=== PATIENT | male | born 1960 | race Hispanic/Latino ===

== ENCOUNTER → 2020-04-15 | Outpatient (CLI) | payer OTHER ==
[~2020-04-15] MED LIST: DAPA10TA PO; ESCI20TA36 PO; GLYB5TAB8 PO; METF-444 PO; OLAN15TA2 PO; SIMV-43 PO
== END | disposition home or self-care (01) ==
LOC: RAH 09:15
PROVIDERS: ATTEND Physical Medicine & Rehabilitation
DX: M25.551 Pain in right hip (principal)
CPT/HCPCS: 73502

== ENCOUNTER → 2020-04-19 | Outpatient (CLI) | payer OTHER ==
[2020-04-19 10:21] LABS: THYROID STIMULATING HORMONE 0.65 uIU/mL (0.36-3.74)
== END | disposition home or self-care (01) ==
LOC: LAB 08:05
PROVIDERS: ATTEND Physical Medicine & Rehabilitation
DX: E11.9 Type 2 diabetes mellitus without complications (principal); D75.89 Other specified diseases of blood and blood-forming organs
CPT/HCPCS: 36415; 84402; 84403; 84439; 84443; 84481

== ENCOUNTER → 2020-08-29 | Outpatient (CLI) | payer OTHER ==
[~2020-08-29] MED LIST changes: -ESCI20TA36 PO; +ESCI20TA38 PO
== END | disposition home or self-care (01) ==
LOC: RAH 12:32
PROVIDERS: ATTEND Physical Medicine & Rehabilitation
DX: M77.32 Calcaneal spur, left foot (principal)
CPT/HCPCS: 73610

== ENCOUNTER → 2020-12-14 | Outpatient (CLI) | payer OTHER | END | disposition home or self-care (01) | LOC: RAH 10:44 | PROVIDERS: ATTEND Physical Medicine & Rehabilitation | DX: M51.16 Intervertebral disc disorders with radiculopathy, lumbar region (principal); M51.06 Intervertebral disc disorders with myelopathy, lumbar region; M51.27 Other intervertebral disc displacement, lumbosacral region; M48.061 Spinal stenosis, lumbar region without neurogenic claudication; M48.07 Spinal stenosis, lumbosacral region | CPT/HCPCS: 72148 ==

== ENCOUNTER 2021-08-03 06:25 | Day surgery (SDC) | payer OTHER ==
[2021-08-02 09:55] VITALS: BP 115/69
[2021-08-02 10:28] LABS: APPEARANCE,URINE CLEAR (CLEAR); BILIRUBIN,URINE NEGATIVE (NEGATIVE); COLOR,URINE YELLOW (YELLOW); GLUCOSE, URINE (UA) >=1000 mg/dL (NEGATIVE); KETONES,URINE NEGATIVE (NEGATIVE); LEUKOCYTE ESTERASE ,URINE NEGATIVE (NEGATIVE); NITRATE,URINE NEGATIVE (NEGATIVE); OCCULT BLOOD,URINE NEGATIVE (NEGATIVE); PH,URINE 6.5 (5.0-8.0); PROTEIN,URINE NEGATIVE (NEGATIVE); UROBILINOGEN,URINE 0.2 mg/dL (0.2-1.0)
[2021-08-02 10:50] LABS: BACTERIA,URINE Rare /HPF (None Seen); RBC,URINE None Seen /HPF (0-1); WBC,URINE None Seen /HPF (0-1)
[2021-08-02 10:51] LABS: SQUAMOUS EPITHELIAL CELL,UR None Seen /HPF (0-2)
[~2021-08-03] VITALS: Ht 157.5 cm; Wt 83.6 kg
[2021-08-03] VITALS (15 sets, daily range): BP systolic 106–127; BP diastolic 61–70
[~2021-08-03 06:25] MED LIST changes: +CLON1TAB12 PO; -ESCI20TA38 PO; +GABA-529 PO; +GLIP5TAB11 PO; -GLYB5TAB8 PO; +ICOS1CAP PO; +INSU100V12 SQ; +LISI2.5T13 PO; -OLAN15TA2 PO; +SERT-440 PO; +SIMV-46 PO; +SITA100T12 PO
[2021-08-03] MEDS ORDERED: 0.9%NACL 1000ML 1,000 ML IV ONE (07:03)
[2021-08-03] MEDS ORDERED: CEFAZOLIN SODIUM 1 GM VIAL ONE ×2 (07:41→08:14)
[2021-08-03] MEDS ORDERED: NEOSTIGMINE 5MG/5ML SYR IV ONE (09:10)
[2021-08-03] MEDS ORDERED: ONDANSETRON 4MG INJ ONE (09:10)
[2021-08-03] MEDS ORDERED: SUCCINYLCHOLINE 200MG/10ML SYR ONE (09:10)
[2021-08-03] MEDS ORDERED: GLYCOPYRROLATE 1 MG/5 ML SYRINGE ONE (09:10)
[2021-08-03] MEDS ORDERED: SUCCINYLCHOLINE CHLORIDE 20 MG/ML 10 ML VIAL ONE ×2 (09:10→09:14)
[2021-08-03] MEDS ORDERED: LIDOCAINE PF 100MG/5ML (2%) SYRINGE 5ML ONE ×2 (09:10→09:14)
[2021-08-03] MEDS ORDERED: PROPOFOL 10 MG/ML 20ML VIAL IV ONE (09:10)
[2021-08-03] MEDS ORDERED: ROCURONIUM 10MG/1ML SYR 10 MG/ML ML ONE ×2 (09:11→10:04)
[2021-08-03] MEDS ORDERED: FENTANYL CITRATE PF 50 MCG/1 ML 2ML VIAL ONE ×2 (09:11→11:49)
[2021-08-03] MEDS ORDERED: MIDAZOLAM HCL 1 MG/ML 2ML VIAL ONE (09:11)
[2021-08-03] MEDS ORDERED: ROPIVACAINE 0.5% 5MG/ML 30ML IJ ONE (09:12)
[2021-08-03] MEDS ORDERED: PHENYLEPHRINE HCL 10 MG/ML 1ML VIAL IV ONE (10:19)
[2021-08-03] MEDS ORDERED: CEPH500B PO (11:32)
[2021-08-03] MEDS ORDERED: HYDR-4060 PO (11:32)
== END 2021-08-03 14:25 | disposition home or self-care (01) ==
LOC: DAHIP 06:25 → UNDOADMOB 06:25 → DAH 06:25 → EDSTATUS 08:00 → 4AH 13:46 → DAHIP 13:46 → 4AH 14:00 → DAH 14:25 → UNDODISOB 14:25
PROVIDERS: ATTEND Orthopaedic Surgery
DX: S52.021A Displaced fracture of olecranon process without intraarticular extension of right ulna, initial encounter for closed fracture (principal); E11.9 Type 2 diabetes mellitus without complications; F32.A Depression, unspecified; F20.0 Paranoid schizophrenia; G47.00 Insomnia, unspecified; E78.00 Pure hypercholesterolemia, unspecified; F17.210 Nicotine dependence, cigarettes, uncomplicated; Z79.899 Other long term (current) drug therapy; Z98.890 Other specified postprocedural states; Z90.49 Acquired absence of other specified parts of digestive tract; Z83.3 Family history of diabetes mellitus; Z82.49 Family history of ischemic heart disease and other diseases of the circulatory system; Z72.89 Other problems related to lifestyle; Z79.84 Long term (current) use of oral hypoglycemic drugs; W11.XXXA Fall on and from ladder, initial encounter; Y93.89 Activity, other specified; Y92.89 Other specified places as the place of occurrence of the external cause
CPT/HCPCS: 24685; 64415; 73080; 76942; 81001; 82948; 87088; 87635; 87641; A4565; A4649; A4930; A6223; C1713 ×2; G0168; J0330 ×3; J0690 ×2; J2001 ×2; J2250; J2370; J2405; J2704; J2710; J2795; J3010 ×2; J3490; J7030 ×2; G0378

== ENCOUNTER → 2021-11-02 | Outpatient (CLI) | payer OTHER ==
[~2021-11-02] MED LIST changes: +CEPH500B PO; +HYDR-4060 PO
== END | disposition home or self-care (01) ==
LOC: RAH 10:51
PROVIDERS: ATTEND Physical Medicine & Rehabilitation
DX: M19.021 Primary osteoarthritis, right elbow (principal); Z98.890 Other specified postprocedural states
CPT/HCPCS: 73080

== ENCOUNTER → 2021-11-10 | Outpatient (CLI) | payer OTHER | END | disposition home or self-care (01) | LOC: RAH 13:18 | PROVIDERS: ATTEND Physical Medicine & Rehabilitation | DX: M25.521 Pain in right elbow (principal) | CPT/HCPCS: 73221 ==

== ENCOUNTER → 2022-09-12 | Outpatient (CLI) | payer OTHER | END | disposition home or self-care (01) | LOC: LAB 16:14 | PROVIDERS: ATTEND Student in an Organized Health Care Education/Training Program | DX: T84.7XXD Infection and inflammatory reaction due to other internal orthopedic prosthetic devices, implants and grafts, subsequent encounter (principal); X58.XXXD Exposure to other specified factors, subsequent encounter | CPT/HCPCS: 87070; 87076; 87077; 87186; 87205 ==

== ENCOUNTER 2022-10-05 05:42 | Day surgery (SDC) | payer OTHER ==
[2022-10-03 11:41] LABS: BASOPHILS % (AUTO) 0.3 % (0.0-5.0); EOSINOPHILS % (AUTO) 1.7 % (0.0-8.0); LYMPHOCYTES % (AUTO) 25.9 % (21.0-51.0); MEAN CORPUSCULAR HEMOGLOBIN 28.9 pg (27.0-33.0); MONOCYTES % (AUTO) 6.5 % (3.0-13.0); NEUTROPHILS % (AUTO) 65.3 % (40.0-77.0); PLATELET COUNT (AUTO) 223 K/uL (130-400); RED BLOOD CELL COUNT(AUTO) 5.53 MIL/uL (4.50-6.20); RED CELL DISTRIBUTION WIDTH 13.2 % (11.0-15.5)
[2022-10-03 11:50] LABS: ALBUMIN 4.1 g/dL (3.5-5.0); CARBON DIOXIDE 27 mmol/L (21-32); CHLORIDE 100 mmol/L (101-111); CREATININE 0.7 mg/dL (0.5-1.5); GLOMERULAR FILTR. RATE CALC 105 mL/min (>90); GLUCOSE,RANDOM 234 mg/dL (70-105); POTASSIUM 3.9 mmol/L (3.5-5.1); SODIUM SERUM 136 mmol/L (136-145); UREA NITROGEN, BLOOD 16 mg/dL (7-18)
[2022-10-03 11:52] LABS: CRP QUANTITATIVE < 2.00 mg/L (0.00-9.0)
[2022-10-03 11:54] VITALS: BP 123/68
[2022-10-05] VITALS (29 sets, daily range): BP systolic 112–152; BP diastolic 62–88
[~2022-10-05] VITALS: Ht 167.6 cm; Wt 83.9 kg
[~2022-10-05 05:42] MED LIST changes: -CEPH500B PO; -CLON1TAB12 PO; -GABA-529 PO; +GLIP10TA9 PO; -GLIP5TAB11 PO; -HYDR-4060 PO; -ICOS1CAP PO; -INSU100V12 SQ; +MIRT-22 PO; +OLAN15TA36 PO; -SERT-440 PO; -SIMV-43 PO; -SIMV-46 PO; +SIMV40TA59 PO; -SITA100T12 PO; +VENL75TA89 PO
[2022-10-05] MEDS ORDERED: 0.9%NACL 1000ML 1,000 ML IV ONE (06:15)
[2022-10-05] MEDS: CEFAZOLIN SODIUM 2 GM VIAL ONE ×2 (06:19→07:30)
[2022-10-05] MEDS ORDERED: FAMOTIDINE 20MG VIAL IV ONE (06:47)
[2022-10-05] MEDS ORDERED: GLYCOPYRROLATE 1 MG/5 ML SYRINGE ONE (06:54)
[2022-10-05] MEDS ORDERED: LIDOCAINE PF 100MG/5ML (2%) SYRINGE 5ML ONE (06:54)
[2022-10-05] MEDS ORDERED: ROCURONIUM 10MG/1ML SYR 10 MG/ML ML ONE (06:54)
[2022-10-05] MEDS ORDERED: PROPOFOL 10 MG/ML 20ML VIAL IV ONE (06:54)
[2022-10-05] MEDS ORDERED: FENTANYL CITRATE PF 50 MCG/1 ML 2ML VIAL ONE ×3 (06:54→10:24)
[2022-10-05] MEDS ORDERED: PHENYLEPHRINE HCL 10 MG/ML 1ML VIAL IV ONE (07:34)
[2022-10-05] MEDS ORDERED: ONDANSETRON 4MG INJ ONE (07:50)
[2022-10-05] MEDS ORDERED: BUPIVACAINE/PF 0.5% 30ML VIAL ONE (08:49)
[2022-10-05] MEDS ORDERED: ACET-2079 PO (08:55)
[2022-10-05] MEDS ORDERED: NEOSTIGMINE 5MG/5ML SYR IV ONE (08:58)
== END 2022-10-05 12:05 | disposition home or self-care (01) ==
LOC: DAH 05:42
PROVIDERS: ATTEND Student in an Organized Health Care Education/Training Program
DX: T84.7XXA Infection and inflammatory reaction due to other internal orthopedic prosthetic devices, implants and grafts, initial encounter (principal); Z20.822 Contact with and (suspected) exposure to COVID-19; I10 Essential (primary) hypertension; E11.9 Type 2 diabetes mellitus without complications; E78.5 Hyperlipidemia, unspecified; K21.9 Gastro-esophageal reflux disease without esophagitis; F32.A Depression, unspecified; E78.00 Pure hypercholesterolemia, unspecified; G47.00 Insomnia, unspecified; F20.0 Paranoid schizophrenia; Z83.3 Family history of diabetes mellitus; Z80.9 Family history of malignant neoplasm, unspecified; Z98.890 Other specified postprocedural states; Z90.49 Acquired absence of other specified parts of digestive tract; Z87.820 Personal history of traumatic brain injury; Y83.8 Other surgical procedures as the cause of abnormal reaction of the patient, or of later complication, without mention of misadventure at the time of the procedure; Y92.89 Other specified places as the place of occurrence of the external cause
CPT/HCPCS: 82040; 80048; 85025; 84134; 86140; 87426; 36415; 24120; 20680; 87070; 87076; 87077; 87186; 87205; 82948 ×2; 73080; A4663; A4565; J3490 ×3; J3010 ×3; J2710; J7030; J2001; J2704; J2405; J2370; J0690; A6223; A4649; A5120; A4215; A4223; A4222; A4221; A6450

== ENCOUNTER → 2022-11-12 | Outpatient (CLI) | payer OTHER ==
[~2022-11-12] MED LIST changes: +ACET-2079 PO
== END | disposition home or self-care (01) ==
LOC: RAH 10:00
PROVIDERS: ATTEND Physical Medicine & Rehabilitation
DX: M25.561 Pain in right knee (principal)
CPT/HCPCS: 73562

== ENCOUNTER → 2024-04-29 | Outpatient (CLI) | payer OTHER ==
[~2024-04-29] MED LIST changes: +GLIP10TA16 PO; -GLIP10TA9 PO; -OLAN15TA36 PO; +OLAN15TA98 PO
--- NOTE | 2024-04-29 13:25 | HMCIMG ---
KNEE 3VWS RT REASON: RIGHT KNEE PAIN TECHNIQUE: 3 views were obtained. FINDINGS: There is no evidence of fracture or dislocation. There is no joint effusion. The soft tissues appear unremarkable. There is no evidence of a radiopaque foreign body. IMPRESSION: No acute findings.
== END | disposition home or self-care (01) ==
LOC: RAH 11:14
PROVIDERS: ATTEND Physical Medicine & Rehabilitation
DX: M17.11 Unilateral primary osteoarthritis, right knee (principal)
CPT/HCPCS: 73562